=== PATIENT | male | born 1980 | race Asian ===

== ENCOUNTER 2017-12-12 12:29 | Outpatient (CLI) | payer BC ==
--- NOTE | 2017-12-12 12:55 | RAD ---
RIGHT FOOT THREE VIEWS: History: Right foot pain. FINDINGS: Tarsals unremarkable. The metatarsals and phalanges appear intact. MTP joints unremarkable. There are extension deformities seen at all MTP joints. IMPRESSION: No acute abnormality identified. POS: [id number]
== END 2017-12-12 12:30 | disposition home or self-care (01) ==
LOC: SCSRAD 12:29
PROVIDERS: ATTEND Family Medicine
DX: M79.671 Pain in right foot (principal)

== ENCOUNTER 2021-03-04 17:30 | Outpatient (CLI) | payer BC | END 2021-03-04 17:31 | disposition home or self-care (01) | LOC: SLEEPLAB 17:30 | PROVIDERS: ATTEND Family Medicine | DX: G47.33 Obstructive sleep apnea (adult) (pediatric) (principal); R53.83 Other fatigue; R06.83 Snoring; E66.9 Obesity, unspecified; I10 Essential (primary) hypertension; G47.00 Insomnia, unspecified; Z68.35 Body mass index [BMI] 35.0-35.9, adult | CPT/HCPCS: 95806 ==

== ENCOUNTER 2021-04-02 17:36 | Outpatient (CLI) | payer BC ==
[2021-04-02 18:37] LABS: Anion Gap 14 mmol/L (10-20); BUN (Urea Nitrogen) 17 mg/dL (8.9-20.6); Calc. Creatinine Clearance 0 mL/min (70-130); Calcium 9.6 mg/dL (7.8-10.44); Carbon Dioxide 25 mmol/L (22-29); Chloride 105 mmol/L (98-107); Glucose 119 mg/dL (70-105); Potassium 3.6 mmol/L (3.5-5.1); Sodium 140 mmol/L (136-145)
[2021-04-03 11:55] LABS: SARS-CoV-2 PCR by NAA Not Detected (NotDetected)
== END 2021-04-02 17:37 | disposition home or self-care (01) ==
LOC: LABBT 17:36
PROVIDERS: ATTEND Surgery
DX: Z01.818 Encounter for other preprocedural examination (principal); Z20.822 Contact with and (suspected) exposure to COVID-19
CPT/HCPCS: 80048; 93005; 93010; U0003; U0005

== ENCOUNTER 2021-04-07 12:05 | Day surgery (SDC) | payer BC ==
[2021-04-06 13:05] VITALS: BMI 34.0
[2021-04-07 13:21] LABS: #Basophils 0.1 thou/uL (0.0-0.2); #Eosinphils 0.4 thou/uL (0.0-0.7); #Lymphocytes 3.1 thou/uL (1.20-3.40); #Monocytes 0.7 thou/uL (0.11-0.59); #Neutrophils 2.9 thou/uL (1.40-6.50); %Basophils 1.3 % (0.0-1.0); %Eosinophils 4.9 % (0.0-10.0); %Lymphocytes 43.1 % (21.0-51.0); %Monocytes 10.3 % (0.0-10.0); %Neutrophils 40.4 % (42.0-75.0); Hemoglobin 14.6 g/dL (14.0-18.0); Mean Corpuscular HGB CONC 33.4 g/dL (32.0-36.0); Mean Corpuscular Hemoglobin 30.2 pg (27.0-31.0); Mean Corpuscular Volume 90.6 fL (78.0-98.0); Mean Platelet Volume 8.4 fL (7.4-10.4); Platelet Count 246 thou/uL (130-400); RBC Distribution Width 10.9 % (11.5-14.5); Red Blood Cell (RBC) Count 4.83 mill/uL (4.70-6.10); White Blood Cell (WBC) Count 7.3 thou/uL (4.8-10.8)
[2021-04-07] MEDS ORDERED: Lidocaine 1% w/Epinephrine 1:100K 20 ML VIAL ONE (14:04)
[2021-04-07] MEDS ORDERED: Bupivacaine 0.25% HCL 30 ML VIAL ONE (14:04)
[2021-04-07] MEDS ORDERED: Fentanyl 100 MCG/2 ML VIAL ONE (14:06)
[2021-04-07] MEDS ORDERED: HYDROmorphone 0.5 MG/0.5 ML SYRINGE ONE (14:06)
[2021-04-07] MEDS ORDERED: Midazolam HCl 2 mg/2 ml Vial ONE (14:06)
[2021-04-07] MEDS ORDERED: Lidocaine 1% PF 5 ML VIAL ONE (14:20)
[2021-04-07] MEDS ORDERED: Dexamethasone 20 MG/5 ML VIAL ONE (14:20)
[2021-04-07] MEDS ORDERED: PHENYLEPHRINE-NS 100 MCG/ML 10 ML SYRINGE ONE (14:20)
[2021-04-07] MEDS ORDERED: PROPOFOL 200 MG/20 ML VIAL ONE (14:20)
[2021-04-07] MEDS ORDERED: Ondansetron PF 4 MG/2 ML Vial ONE (14:20)
[2021-04-07] MEDS ORDERED: ceFAZolin Sodium (SDC) 2 GM/100 ML BAG ONE (14:29)
== END 2021-04-07 16:51 | disposition home or self-care (01) ==
LOC: SDC 12:05
PROVIDERS: ATTEND Surgery
PROC: 0WUF0JZ Supplement Abdominal Wall with Synthetic Substitute, Open Approach (ICD-10-PCS; principal; 2021-04-07)
DX: K42.9 Umbilical hernia without obstruction or gangrene (principal); E78.5 Hyperlipidemia, unspecified; I10 Essential (primary) hypertension; Z88.1 Allergy status to other antibiotic agents; Z88.5 Allergy status to narcotic agent; Z88.8 Allergy status to other drugs, medicaments and biological substances; Z79.899 Other long term (current) drug therapy; Z98.890 Other specified postprocedural states
CPT/HCPCS: 85025; J0690; J1100; J1170; J2250; J2405; J2704; J3010; S0020